=== PATIENT | male | born 1960 | race Caucasian/White ===

== ENCOUNTER 2018-12-20 14:26 | Observation (INO) | payer BC ==
[~2018-12-20] VITALS: Ht 193 cm; Wt 109.0 kg
[2018-12-20 14:31] VITALS: Ht 193 cm; Wt 109.0 kg
[2018-12-20] MEDS ORDERED: BETAPACE 120 M120 MG PO (14:40)
[2018-12-20 14:52] LABS: BASOPHILS 0.3 % (0-2); EOSINOPHILS 0.8 % (0-7); HEMATOCRIT 45.3 % (42.0-54.0); HEMOGLOBIN 16.3 g/dL (13.5-17.5); IMMATURE GRANULOCYTES 0.3 % (0-5); LYMPHOCYTES 19.2 % (15-50); MCV 86.3 fL (80.0-100.0); MEAN PLATELET VOLUME 9.8 fL (7.4-10.4); MONOCYTES 5.8 % (2-11); NEUTROPHILS 73.6 % (40-80); PLATELET COUNT 151 10x3/uL (130-400); RBC 5.25 10x6/uL (4.20-6.10); RDW 13.4 % (11.5-14.5)
[2018-12-20 15:11] LABS: ALBUMIN 4.2 g/dL (3.4-5.0); ALKALINE PHOSPHATASE 56 U/L (46-116); ALT (SGPT) 37 U/L (10-68); BILIRUBIN - TOTAL 0.66 mg/dL (0.2-1.3); CALC OSMOLALITY 274 mosm/kg (275-300); CALCIUM 9.9 mg/dL (8.5-10.1); CHLORIDE - SERUM 101 mmol/L (98-107); CREATININE - SERUM 0.9 mg/dL (0.6-1.3); GLUCOSE 113 mg/dL (74-106); POTASSIUM - SERUM 4.2 mmol/L (3.5-5.1); PROTEIN - SERUM 7.5 g/dL (6.4-8.2); SODIUM 137 mmol/L (136-145); UREA NITROGEN 13 mg/dL (7-18); eGFR NON AFRICAN AMERICAN > 90 mL/min (90-120)
[2018-12-20 15:19] LABS: CREATINE KINASE 118 UL (21-232); TROPONIN-I < 0.017 ng/mL (0.000-0.060)
[2018-12-20 15:37] VITALS: BP 140/81
[2018-12-20 16:32] VITALS: BP 136/92
[2018-12-20 17:20] VITALS: BP 137/84
--- NOTE | 2018-12-20 19:22 | NUR ---
RECIEVED SITTING UP IN BED WITH EYES OPEN. FRIEND AT BEDSIDE AND TV ON. ALERT AND ORIENTED X4. UP AD KLARISSA. DENIES ANY PAIN OR NEEDS.
[2018-12-20 20:00] VITALS: BP 133/86
[2018-12-21] VITALS: BP 122/76
[2018-12-21 02:29] LABS: BASOPHILS 0.3 % (0-2); EOSINOPHILS 1.4 % (0-7); HEMATOCRIT 43.9 % (42.0-54.0); HEMOGLOBIN 15.7 g/dL (13.5-17.5); IMMATURE GRANULOCYTES 0.2 % (0-5); LYMPHOCYTES 36.2 % (15-50); MCH 30.8 pg (26.0-34.0); MCHC 35.8 g/dL (31.0-37.0); MCV 86.2 fL (80.0-100.0); MEAN PLATELET VOLUME 9.9 fL (7.4-10.4); MONOCYTES 7.2 % (2-11); NEUTROPHILS 54.7 % (40-80); PLATELET COUNT 140 10x3/uL (130-400); RBC 5.09 10x6/uL (4.20-6.10); RDW 13.2 % (11.5-14.5); WBC 6.4 10x3/uL (4.8-10.8)
[2018-12-21 02:49] LABS: CALC OSMOLALITY 284 mosm/kg (275-300); CALCIUM 8.7 mg/dL (8.5-10.1); CARBON DIOXIDE 25.8 mmol/L (21.0-32.0); CHLORIDE - SERUM 106 mmol/L (98-107); GLUCOSE 114 mg/dL (74-106); SODIUM 142 mmol/L (136-145); UREA NITROGEN 16 mg/dL (7-18); eGFR NON AFRICAN AMERICAN 82 mL/min (90-120)
[2018-12-21 02:50] LABS: TROPONIN-I < 0.017 ng/mL (0.000-0.060)
[2018-12-21 04:00] VITALS: BP 110/73
[2018-12-21 08:06] VITALS: BP 105/67
[2018-12-21] MEDS ORDERED: XARELTO15 MG PO (08:23)
--- NOTE | 2018-12-21 09:00 | NUR ---
IV AND TELEMETRY DCD. DC PLANS GIVEN. UNDERSTANDING VOICED.
--- NOTE | 2018-12-21 10:00 | NUR ---
ESCORTED TO CAR.
--- NOTE | 2018-12-22 08:37 | MORECARE ---
CASE MANAGEMENT DISCHARGE SUMMARY PATIENT: SD GARCIA UNIT: [id number] ADM DATE: 12/20/18 AGE: 58 : 62 SEX: M ROOM/BED: D.2114 AUTHOR: CASSI QUINN PHYSICIAN: REFERRING PHYSICIAN: VERNON CURIEL M.D. DATE OF SERVICE: 12/22/18 Discharge Plan Patient Name: SD [facility] [facility] 1960 Planned Disposition: Home Anticipated Discharge Date: 12/21/18 Discharge Date: 12/21/2018 Expected LOS: 1 Initial Reviewer: [email or web address] Initial Review Date: 12/22/2018 Generated: 12/22/18 9:37 am Patient Name: SD GARCIA Page [id number] at 0837 All edits/amendments must be made on the electronic document DICTATION DATE: 12/22/1837 MANAGER NIGHT: LAN 12/22/18 0837 RPT#: [id number] DC DATE:12/21/18 STATUS: DIS IN [facility] [address] [place] [address] END OF REPORT
== END 2018-12-21 10:01 | disposition home or self-care (01) ==
LOC: D.ER 14:26 → OBSVTIME 16:36 → D.M2 16:36 → D.EDHOLD 16:36 → D.M2 17:49
PROVIDERS: Family Medicine; ADMIT Internal Medicine Cardiovascular Disease
DX: I48.0 Paroxysmal atrial fibrillation (principal); R07.89 Other chest pain

== ENCOUNTER 2019-05-25 10:21 | Emergency (ER) | payer BC ==
[~2019-05-25] VITALS: Ht 193 cm; Wt 104.5 kg
[~2019-05-25 10:21] MED LIST: BETAPACE 120 M120 MG PO; XARELTO15 MG PO
[2019-05-25 10:22] VITALS: Ht 193 cm; Wt 104.5 kg
[2019-05-25 10:45] LABS: BASOPHILS 0.4 % (0-2); EOSINOPHILS 1.7 % (0-7); HEMATOCRIT 41.5 % (42.0-54.0); HEMOGLOBIN 14.6 g/dL (13.5-17.5); IMMATURE GRANULOCYTES 0.4 % (0-5); LYMPHOCYTES 34.1 % (15-50); MCH 30.1 pg (26.0-34.0); MCHC 35.2 g/dL (31.0-37.0); MCV 85.6 fL (80.0-100.0); MEAN PLATELET VOLUME 9.7 fL (7.4-10.4); MONOCYTES 7.9 % (2-11); NEUTROPHILS 55.5 % (40-80); PLATELET COUNT 169 10x3/uL (130-400); RBC 4.85 10x6/uL (4.20-6.10); RDW 13.2 % (11.5-14.5); WBC 5.4 10x3/uL (4.8-10.8)
[2019-05-25 10:56] LABS: APTT 27.2 SECONDS (22.8-39.4); INR 1.06 (0.85-1.17); PROTIME 13.3 SECONDS (11.6-15.0)
[2019-05-25 11:06] LABS: ALKALINE PHOSPHATASE 61 U/L (46-116); ALT (SGPT) 23 U/L (10-68); BILIRUBIN - TOTAL 0.72 mg/dL (0.2-1.3); CALC OSMOLALITY 279 mosm/kg (275-300); CALCIUM 8.7 mg/dL (8.5-10.1); CARBON DIOXIDE 30.1 mmol/L (21.0-32.0); CHLORIDE - SERUM 103 mmol/L (98-107); CREATININE - SERUM 1.1 mg/dL (0.6-1.3); GLUCOSE 129 mg/dL (74-106); POTASSIUM - SERUM 4.5 mmol/L (3.5-5.1); PROTEIN - SERUM 7.1 g/dL (6.4-8.2); SODIUM 139 mmol/L (136-145); UREA NITROGEN 13 mg/dL (7-18); eGFR NON AFRICAN AMERICAN 73 mL/min (90-120)
[2019-05-25 11:17] LABS: CKMB 0.5 U/L (0.0-3.6); CREATINE KINASE 88 UL (21-232); THYROID STIMULATING HORMONE 1.63 uIU/mL (0.36-3.74); TROPONIN-I < 0.017 ng/mL (0.000-0.060)
[2019-05-25 13:54] VITALS: BP 123/65
== END 2019-05-25 13:48 | disposition other institution (70) ==
LOC: D.ER 10:21
PROVIDERS: Family Medicine
DX: I63.9 Cerebral infarction, unspecified (principal)

== ENCOUNTER 2019-05-30 20:36 | Emergency (ER) | payer BC ==
[~2019-05-30] VITALS: Ht 193 cm; Wt 102.3 kg
[2019-05-30 20:45] VITALS: Ht 193 cm; Wt 102.3 kg
[2019-05-30] MEDS ORDERED: LIPITOR40 MG PO (20:47)
[2019-05-30] MEDS ORDERED: ELIQUIS5 MG PO (20:47)
[2019-05-30 21:03] LABS: BASOPHILS 0.2 % (0-2); EOSINOPHILS 2.2 % (0-7); HEMATOCRIT 39.2 % (42.0-54.0); IMMATURE GRANULOCYTES 0.2 % (0-5); LYMPHOCYTES 36.3 % (15-50); MCH 30.4 pg (26.0-34.0); MCHC 35.7 g/dL (31.0-37.0); MEAN PLATELET VOLUME 10.9 fL (7.4-10.4); MONOCYTES 9.8 % (2-11); NEUTROPHILS 51.3 % (40-80); RBC 4.61 10x6/uL (4.20-6.10); RDW 13.3 % (11.5-14.5); WBC 5.1 10x3/uL (4.8-10.8)
[2019-05-30 21:04] LABS: PLATELET COUNT 209 10x3/uL (130-400)
[2019-05-30 21:11] LABS: APTT 25.7 SECONDS (22.8-39.4); INR 1.17 (0.85-1.17); PROTIME 14.3 SECONDS (11.6-15.0)
[2019-05-30 21:18] LABS: ALBUMIN 3.8 g/dL (3.4-5.0); ALKALINE PHOSPHATASE 59 U/L (46-116); ALT (SGPT) 33 U/L (10-68); BILIRUBIN - TOTAL 0.41 mg/dL (0.2-1.3); CALC OSMOLALITY 277 mosm/kg (275-300); CALCIUM 8.8 mg/dL (8.5-10.1); CARBON DIOXIDE 24.9 mmol/L (21.0-32.0); CHLORIDE - SERUM 103 mmol/L (98-107); CREATININE - SERUM 1.5 mg/dL (0.6-1.3); GLUCOSE 119 mg/dL (74-106); POTASSIUM - SERUM 4.1 mmol/L (3.5-5.1); PROTEIN - SERUM 6.9 g/dL (6.4-8.2); SODIUM 137 mmol/L (136-145); UREA NITROGEN 22 mg/dL (7-18); eGFR NON AFRICAN AMERICAN 51 mL/min (90-120)
[2019-05-30 21:34] LABS: CKMB 0.6 U/L (0.0-3.6); CREATINE KINASE 70 UL (21-232); MAGNESIUM - SERUM 2.3 mg/dL (1.8-2.4); THYROID STIMULATING HORMONE 1.86 uIU/mL (0.36-3.74)
[2019-05-30 21:35] LABS: TROPONIN-I < 0.017 ng/mL (0.000-0.060)
[2019-05-30 21:47] LABS: APPEARANCE CLEAR (CLEAR); BILIRUBIN NEGATIVE (NEGATIVE); COLOR YELLOW (YELLOW); GLUCOSE NEGATIVE (NEGATIVE); KETONE NEGATIVE (NEGATIVE); NITRITE NEGATIVE (NEGATIVE); PROTEIN NEGATIVE (NEGATIVE); SPECIFIC GRAVITY 1.025 (1.005-1.020); UROBILINOGEN NORMAL (NORMAL); WHITE CELLS - URINE NSEEN /hpf (0-5)
[2019-05-31 01:37] VITALS: BP 115/70
== END 2019-05-31 02:25 | disposition home or self-care (01) ==
LOC: D.ER 20:36
PROVIDERS: Family Medicine
DX: I69.328 Other speech and language deficits following cerebral infarction (principal); I69.398 Other sequelae of cerebral infarction

== ENCOUNTER → 2019-06-05 15:46 | Outpatient (CLI) | payer BC ==
[2019-05-30 20:45] VITALS: BMI 27.4
[~2019-06-05 15:46] MED LIST changes: +ELIQUIS5 MG PO; +LIPITOR40 MG PO
== END | disposition home or self-care (01) ==
LOC: D.RT 15:46
PROVIDERS: ATTEND Family Medicine
DX: J44.9 Chronic obstructive pulmonary disease, unspecified (principal)